=== PATIENT | female | born 1965 | race Caucasian/White ===

== ENCOUNTER → 2023-01-10 07:56 | Outpatient (CLI) | payer OTHER, SELFPAY ==
--- NOTE | ~2023-01-10 | XR_ITS ---
EXAMINATION: XR knee LT 3V DATE: 01/10/2023 08:22 INDICATION: Unspecified internal derangement of the left knee TECHNIQUE: Standing AP, flexed lateral and sunrise views of the left knee were obtained COMPARISON: None. FINDINGS: Alignment is normal. No fracture. Joint spaces are normal. Minute marginal osteophyte along the late ral tibial plateau and lateral patellar facet. Small left knee joint effusion. Small enthesopathic os sicle along the patellar insertion of the quadriceps tendon. Soft tissues are unremarkable. IMPRESSION: 1. Small left knee joint effusion. 2. Tiny marginal osteophytes at the lateral patellofemoral compartments with preserved joint spaces c onsistent with minimal osteoarthritis. Reviewed, dictated and finalized at location A. [facility] IMPRESSION: 1. Small left knee joint effusion. 2. Tiny marginal osteophytes at the lateral patellofemoral compartments with pr eserved joint spaces consistent with minimal osteoarthritis.
== END ==
PROVIDERS: PCP Physician Assistant; Visit Provider Physician Assistant
DX: M23.92 Unspecified internal derangement of left knee (principal); M25.462 Effusion, left knee
CPT/HCPCS: 73562

== ENCOUNTER → 2023-01-21 07:06 | Outpatient (CLI) | payer OTHER, SELFPAY ==
--- NOTE | ~2023-01-21 | MR_ITS ---
MRI of the left knee Clinical history: Internal derangement Technique: Coronal proton density and proton density-weighted images, sagittal proton-density and T2 fat-sat images, and axial proton-density fat-saturated images were acquired. Findings: Anterior and posterior cruciate ligaments are intact. Medial collateral ligament and the la teral collateral ligament complex are intact. Popliteus tendon is intact. There is horizontal/oblique tear of the posterior horn of the medial meniscus. Lateral meniscus is in tact, without evidence of tear. There is mild diffuse chondral thinning in the medial compartment. There is minimal chondromalacia pa tella. Bone marrow signals are unremarkable. Extensor mechanism is intact. Small joint effusion present. No Cuevas's cyst. Impression: Horizontal/oblique tear of the posterior horn of the medial meniscus. Mild chondromalacia changes, as above. Reviewed, dictated and finalized at location . EXPERT Impression: Horizontal/oblique tear of the posterior horn of the medial meniscus. Mild chondromalacia changes, as above.
== END ==
PROVIDERS: PCP Chiropractor Rehabilitation; Visit Provider Physician Assistant
DX: M23.92 Unspecified internal derangement of left knee (principal); S83.222A Peripheral tear of medial meniscus, current injury, left knee, initial encounter; M94.262 Chondromalacia, left knee
CPT/HCPCS: 73721